=== PATIENT | female | born 2000 | race Caucasian/White ===

== ENCOUNTER 2025-09-25 12:49 | Emergency (ER) | payer OTHER ==
[2025-09-25 15:03] LABS: HBSAB Concentration 265.55 mIU/mL; HIV (1/2) Antibody/Antigen NONREACTIVE (NonReactive); HIV 1/2 INDEX 0.06 S/CO (<1.00); Hep C IgG Ab NONREACTIVE S/CO (NonReactive); Hep C Index 0.17 S/CO (0-0.79)
== END 2025-09-25 15:05 | disposition home or self-care (01) ==
LOC: ERS 12:49
DX: Z77.21 Contact with and (suspected) exposure to potentially hazardous body fluids (principal); Z23 Encounter for immunization; W46.1XXA Contact with contaminated hypodermic needle, initial encounter
CPT/HCPCS: 86706; 86803; 87389; 90471; 90715